=== PATIENT | female | born 2000 | race Caucasian/White ===

== ENCOUNTER 2021-03-22 16:52 | Inpatient (IN) | payer MEDICAID ==
[~2021-03-22 16:52] MED LIST: Carboprost Tromethamine 250 MCG/1 ML Amp IM PRN; Lidocaine 1% 50 ML MDV INJECT PRN; Methylergonovine 0.2 MG/1 ML Amp IM PRN; Misoprostol 200 MCG Tab PO PRN; Ondansetron 4 MG/2 ML SDV IVPUSH PRN; Sodium Chloride 0.9% 10 ML SDV IV PRN; Sodium Chloride 0.9% 10 ML Syringe FLUSH PRN; Sodium Chloride 0.9% 2.5 ML Syringe FLUSH PRN; Terbutaline 1 MG/ML SDV SUBCUT PRN; Tranexamic Acid 1,000 MG in Sodium Chloride 0.9% 100 ML IV PRN; Water For Irrigation,Sterile 1,000 ML Container IRR PRN
[2021-03-22] MEDS ORDERED: Oxytocin/0.9 % Sodium Chloride 30 UNIT/500 ML BAG IV SCH ×2 (17:00)
[2021-03-22] MEDS: Lactated Ringers 1,000 ML IV SCH (17:41)
[2021-03-22] MEDS ORDERED: Ampicillin 2 GM in Sodium Chloride 0.9% 100 ML IV ONE (18:00)
[2021-03-22] MEDS ORDERED: Misoprostol 25 MCG (1/4 of 100 MCG) Tab VAG PRN ×2 (18:00→22:00)
[2021-03-22] MEDS ORDERED: Sodium Chloride 0.9% 50 ML ONE (23:41)
[2021-03-22] MEDS ORDERED: Ampicillin 1 GM Vial ONE (23:41)
[2021-03-23] MEDS: Butorphanol 1 MG/ML SDV IVPUSH PRN ×3 (03:11→06:38)
[2021-03-23] MEDS ORDERED: Ampicillin 1 GM Vial ONE (04:12)
[2021-03-23] MEDS ORDERED: Sodium Chloride 0.9% 50 ML ONE (04:13)
--- NOTE | 2021-03-23 05:59 | PCM.PREANE ---
Preanesthetic Assessment - Procedure Proposed Procedure: Continuous labor epidural - Anesthesia/Transfusion/Family Hx Anesthesia History: Prior Anesthesia Without Reaction Other Type of Anesthesia Reaction Comment: reports previous epidural did not work Transfusion History: No Prior Transfusion(s) - Review of Systems General: No Symptoms Pulmonary: No Symptoms Cardiovascular: No Symptoms Gastrointestinal: No Symptoms Neurological: No Symptoms Other: Reports: None - Physical Assessment Height: 5 ft 3 in Weight: 113.398 kg ASA Class: 3 Mental Status: Alert & Oriented x3 Airway Class: Mallampati = 2 Dentition: Reports: Normal Dentition ROM/Head Extension: Full Lungs: Clear to Auscultation, Normal Respiratory Effort Cardiovascular: Regular Rate, Regular Rhythm - Lab Values: Laboratory Last Values WBC 12.18 K/uL (4.0-11.0) H 03/22/21 17: RBC 3.93 M/uL (4.30-5.90) L 03/22/21 17: Hgb 11.2 g/dL (12.0-16.0) L 03/22/21 17: Hct 35.2 % (36.0-46.0) L 03/22/21 17:29 MCV 89.6 fL (80.0-98.0) 03/22/21 17: MCH 28.5 pg (27.0-32.0) 03/22/21 17: MCHC 31.8 g/dL (31.0-37.0) 03/22/21 17:29 RDW Std Deviation 43.6 fl (28.0-62.0) 03/22/21 17:29 RDW Coeff of [place]ita 13 % (11.0-15.0) 03/22/21 17:29 Plt Count 267 K/uL (150-400) 03/22/21 17:29 MPV 12.30 fL (7.40-12.00) H 03/22/21 17:29 Nucleated RBC % 0.0 /100WBC 03/22/21 17:29 Nucleated RBCs # 0 K/uL 03/22/21 17:29 SARS-CoV-2 RNA (REAL) NEGATIVE (NEGATIVE) 03/22/21 17:39 Blood Type A POSITIVE 03/22/21 17:29 Antibody Screen NEGATIVE 03/22/21 17:29 - Allergies Allergies/Adverse Reactions: Allergies Allergy/AdvReac Type Severity Reaction Status Date / Time pineapple Allergy Hives Verified 03/22/21 16:49 - Acknowledgements Anesthesia Type Planned: Epidural Pt an Appropriate Candidate for the Planned Anesthesia: Yes Alternatives and Risks of Anesthesia Discussed w Pt/Guardian: Yes Pt/Guardian Understands and Agrees with Anesthesia Plan: Yes PreAnesthesia Questionnaire Cardiovascular History: Reports: Other (See Below) Other Cardiovascular History: history of gest HTN during first only Respiratory History: Reports: None Gastrointestinal History: Reports: GERD 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: : 2 Para: 1 Other OB/BYN History: one living son Musculoskeletal History: Reports: None Psychiatric History: Reports: Depression Other Psychiatric History: pt states she was taking wellbutrin for depression in beginning of but stopped - Past Surgical History HEENT Surgical History: Reports: None Cardiovascular Surgical History: Reports: None Neurological Surgical History: Reports: None - SUBSTANCE USE Tobacco Use Status *Q: Former Tobacco User - HOME MEDS Home Medications: Home Meds Albuterol [Proventil HFA] PRN 03/22/21 [History] Aspirin PO DAILY 03/22/21 [History] oxyCODONE PO DAILY 03/22/21 [History] - CURRENT (IN HOUSE) MEDS Current Meds: Current Medications Butorphanol Tartrate (Butorphanol 1 Mg/Ml Sdv) 1 mg IVPUSH Q1H PRN PRN Reason: Pain Last Admin: 03/23/21 04:11 Dose: 1 mg Documented by: Carboprost Tromethamine (Carboprost Tromethamine 250 Mcg/1 Ml Amp) 250 mcg IM ASDIRECTED PRN PRN Reason: Post Hemorrhage Oxytocin/Sodium Chloride (Oxytocin 30 Unit/500 Ml-Ns) 30 unit in 500 mls @ 500 mls/hr IV TITRATE PAUL Tranexamic Acid 1,000 mg/ (Sodium Chloride) 110 mls @ 660 mls/hr IV ONETIME PRN PRN Reason: Bleeding Oxytocin/Sodium Chloride (Oxytocin 30 Unit/500 Ml-Ns) 30 unit in 500 mls @ 2 mls/hr IV TITRATE PAUL; Protocol Lactated Ringer's (Ringers, Lactated) 1,000 mls @ 150 mls/hr IV ASDIRECTED PAUL Last Admin: 03/22/21 17:41 Dose: 150 mls/hr Documented by: Lidocaine HCl (Lidocaine 1% 50 Ml Mdv) 50 ml INJECT ONETIME PRN PRN Reason: Laceration repair Methylergonovine Maleate (Methylergonovine 0.2 Mg/1 Ml Amp) 0.2 mg IM ASDIRECTED PRN PRN Reason: Post Hemorrhage Misoprostol (Misoprostol 200 Mcg Tab) 200 mcg PO ONETIME PRN PRN Reason: Post Hemorrhage Misoprostol (Misoprostol 25 Mcg (1/4 Of 100 Mcg) Tab) 25 mcg VAG ONETIME PRN PRN Reason: Cervical Ripening Last Admin: 03/22/21 19:04 Dose: 25 mcg Documented by: Misoprostol (Misoprostol 25 Mcg (1/4 Of 100 Mcg) Tab) 25 mcg VAG Q4H PRN PRN Reason: Cervical Ripening Last Admin: 03/22/21 23:53 Dose: 25 mcg Documented by: Ondansetron HCl (Ondansetron 4 Mg/2 Ml Sdv) 4 mg IVPUSH Q6H PRN PRN Reason: Nausea/Vomiting Sodium Chloride (Sodium Chloride 0.9% 10 Ml Syringe) 10 ml FLUSH ASDIRECTED PRN PRN Reason: Keep Vein Open Sodium Chloride (Sodium Chloride 0.9% 2.5 Ml Syringe) 2.5 ml FLUSH ASDIRECTED PRN PRN Reason: Keep Vein Open Sodium Chloride (Sodium Chloride 0.9% 10 Ml Sdv) 10 ml IV ASDIRECTED PRN PRN Reason: IV Use Sterile Water (Water For Irrigation,Sterile 1,000 Ml Container) 1,000 ml IRR ASDIRECTED PRN PRN Reason: delivery Terbutaline Sulfate (Terbutaline 1 Mg/Ml Sdv) 0.25 mg SUBCUT ASDIRECTED PRN PRN Reason: Tacysystole Discontinued Medications Ampicillin Sodium (Ampicillin 1 Gm Vial) Confirm Administered Dose 1 gm .ROUTE .STK-MED ONE Stop: 03/22/21 23:42 Last Admin: 03/22/21 23:48 Dose: 1 gm Documented by: Ampicillin Sodium (Ampicillin 1 Gm Vial) Confirm Administered Dose 1 gm .ROUTE .STK-MED ONE Stop: 03/23/21 04:13 Ephedrine Sulfate (Ephedrine Sulfate 50 Mg/10 Ml Vial) Confirm Administered Dose 50 mg .ROUTE .STK-MED ONE Stop: 03/23/21 05:27 Ampicillin Sodium 2 gm/ Sodium (Chloride) 100 mls @ 200 mls/hr IV ONETIME ONE Stop: 03/22/21 18:29 Last Admin: 03/22/21 19:01 Dose: 200 mls/hr Documented by: Sodium Chloride (Normal Saline) Confirm Administered Dose 50 mls @ as directed .ROUTE .STK-MED ONE Stop: 03/22/21 23:42 Sodium Chloride (Normal Saline) Confirm Administered Dose 50 mls @ as directed .ROUTE .STK-MED ONE Stop: 03/23/21 04:14
--- NOTE | 2021-03-23 06:00 | PCM.POSTAN ---
POST ANESTHESIA ASSESSMENT - MENTAL STATUS Mental Status: Alert, Oriented - RESPIRATORY Respiratory Status: Respiratory Rate WNL, Airway Patent, O2 Saturation Stable - CARDIOVASCULAR CV Status: Pulse Rate WNL, Blood Pressure Stable - GASTROINTESTINAL GI Status: No Symptoms - POST OP HYDRATION Hydration Status: Adequate & Stable - OBSERVATIONS Free Text/Narrative:: epidural removed per patient request
[2021-03-23] MEDS: Lactated Ringers 1,000 ML IV SCH (06:40)
--- NOTE | 2021-03-23 07:41 | PCM.OPNOTE ---
- General Post-Op/Procedure Note Date of Surgery/Procedure: 03/23/21 Operative Procedure(s): cytotec induction TSVD repair of right labial laceration Findings: Liveborn male 8/9 weight is pending, right labia laceration repaired Pre Op Diagnosis: 39 weeks, lives remote from the hospital, GBS positive. Post-Op Diagnosis: Same Anesthesia Technique: Other (see below) (attempted epidural, did not work, removed) Primary Surgeon: Cheryl Randhawa Anesthesia Provider: Kirit Lara Pathology: none EBL in mLs: 300 Complications: None Known Condition: Good
[2021-03-23] MEDS ORDERED: Bisacodyl 10 MG Supp RECTAL PRN (07:43)
[2021-03-23] MEDS ORDERED: Lanolin 100% Cream 7 GM Tube TOP PRN (07:43)
[2021-03-23] MEDS ORDERED: Witch Hazel Medicated Pads 40/Jar TOP PRN (07:43)
[2021-03-23] MEDS ORDERED: Benzocaine/Menthol 20%-0.5% Spray 78 GM Cannister TOP PRN (07:43)
[2021-03-23] MEDS ORDERED: Ibuprofen 400 MG Tab PO PRN (07:43)
--- NOTE | 2021-03-23 09:24 | OR ---
SURGEON: Cheryl Randhawa M.D. DATE OF PROCEDURE: 03/23/2021 PREOOPERATIVE DIAGNOSES: 39-week intrauterine , was remote from the hospital, group B Streptococcus positive. POSTOPERATIVE DIAGNOSES: 39-week intrauterine , was remote from the hospital, group B Streptococcus positive. PROCEDURES: Group B Streptococcus prophylaxis, Cytotec induction of labor, term spontaneous vaginal delivery, repair of right labial laceration. PRIMARY SURGEON: Cheryl Randhawa M.D. ANESTHESIA: Epidural attempted, but failed and removed. FINDINGS: Live born male. scores 8 and 9. Weight is pending. Placenta spontaneous, Schultze intact, with 3 vessels. Large right labial laceration repaired for hemostasis. COMPLICATIONS: None known. DISPOSITION: Mother and baby in LDR in good condition. BRIEF HISTORY: This is a 20-year-old female. She is G2, P1-0-0-1. She presents at 39 weeks' gestation for induction of labor. She lives remote from the hospital. She is group B strep positive. She received group B strep prophylaxis. She received 2 doses of Cytotec. When she was 4 to 5 cm dilated, she had spontaneous rupture of membranes. She received an epidural for pain control, which did not work. Noted that during her previous delivery, she received 2 epidurals, both of which did not work. Therefore, the epidural was removed, and she received Stadol for pain control, and she progressed to complete. I did offer her a pudendal block. However, when she was complete, she continued to push. DESCRIPTION OF PROCEDURE: The patient pushed in the dorsal lithotomy position over 2 contractions to a 5+ station. Therefore, did not receive the pudendal block, and the head was delivered spontaneously and atraumatically over the perineum with support with subsequent delivery of the infant's shoulders and body without any difficulty. The was bulb suctioned by nose and mouth, and after 1-1/2 minutes, the cord was doubly clamped and cut. The infant was handed to the mother in the presence of the nurse attending delivery. The is a live born male. scores 8 and 9. Weight is pending at the time of dictation. Cord blood was collected for cord ABGs as well as routine cord blood sampling. Pitocin was initiated after delivery of the to assist with delivery of the placenta which was delivered spontaneously. Schultze intact with 3 vessels. Upon inspection of pelvis and perineum, there were no periurethral, vaginal sidewall, cervical, rectal, or perineal lacerations. There was a right labial laceration that extended from the 6 o'clock position all the way up the labia. A total of 20 mL of 1% lidocaine was injected. A running lock suture was used to reapproximate the labial skin and 2 deep [id number] sutures were placed at the lower aspect for hemostasis. Final sponge, needle, and instrument counts were correct. There were no known complications. Mother and baby remained in LDR in good condition. NATALY / TANA /[id number]
[2021-03-23] MEDS: Ibuprofen 800 MG Tab PO PRN ×2 (10:29→20:18)
[2021-03-23] MEDS: Acetaminophen 500 MG Tab PO PRN ×2 (10:29→23:38)
[2021-03-23] MEDS ORDERED: Ketorolac 30 MG/ML SDV IVPUSH ONE (11:13)
[2021-03-23] MEDS: oxyCODONE 5 MG Tab PO PRN ×3 (12:30→23:39)
[2021-03-23] MEDS ORDERED: Ketorolac 30 MG/ML SDV ONE (16:11)
[2021-03-23] MEDS: Docusate Sodium 100 MG Cap PO PRN (20:16)
[2021-03-24] MEDS: Acetaminophen 500 MG Tab PO PRN ×2 (04:29→13:23)
[2021-03-24] MEDS: oxyCODONE 5 MG Tab PO PRN ×3 (04:30→22:06)
[2021-03-24] MEDS: Ibuprofen 800 MG Tab PO PRN (07:24)
--- NOTE | 2021-03-24 07:56 | PCM.PNPP ---
- General Info Date of Service: 03/24/21 Subjective Update: Resting in bed with ice to neck/base of head due to spinal headache. Has talked with anesthesia who plans to proceed with a blood patch today to attempt to improve her symptoms. Otherwise, denies abdominal or lower extremity pain. Has ambulated and voided with nursing staff. Lochia decreasing. Tolerating regular diet. Denies lightheadedness or dizziness. Breast and bottlefeeding due to borderline blood glucose for . - General Info Date of Service: 03/24/21 - Patient Data Vital Signs - Most Recent: Last Vital Signs Temp 96.9 F 03/24/21 04:30 Pulse 80 03/24/21 04:30 Resp 17 03/24/21 04:30 BP 111/58 L 03/24/21 04:30 Pulse Ox 100 03/24/21 04:30 Weight - Most Recent: 250 lb Lab Results - Last 24 Hours: Laboratory Results - last 24 hr 03/23/21 03/24/21 Range/Units 07:09 06:47 Hgb 8.9 L (12.0-16.0) g/dL Hct 28.0 L (36.0-46.0) % Cord ABG pH 7.235 (7.18-7.38) Cord ABG Base Excess -5 (-10--2) Cord VBG pH 7.415 (7.25-7.45) Cord VBG Base Excess -3 (-10--2) Med Orders - Current: Current Medications Acetaminophen (Acetaminophen 500 Mg Tab) 500 mg PO Q4H PRN PRN Reason: Pain Last Admin: 03/24/21 04:29 Dose: 500 mg Documented by: Acetaminophen (Acetaminophen 500 Mg Tab) 1,000 mg PO Q4H PRN PRN Reason: Pain Last Admin: 03/23/21 10:29 Dose: 1,000 mg Documented by: Benzocaine/Menthol (Benzocaine/Menthol 20%-0.5% [place] 78 Gm Cannister) 78 gm TOP ASDIRECTED PRN PRN Reason: Perineal Comfort Measure Last Admin: 03/23/21 20:17 Dose: 1 spray Documented by: Bisacodyl (Bisacodyl 10 Mg Supp) 10 mg RECTAL ONETIME PRN PRN Reason: Constipation Docusate Sodium (Docusate Sodium 100 Mg Cap) 100 mg PO BID PRN PRN Reason: Constipation Last Admin: 03/23/21 20:16 Dose: 100 mg Documented by: Emollient Ointment (Lanolin 100% Cream 7 Gm Tube) 0 gm TOP ASDIRECTED PRN PRN Reason: Sore Nipples Ibuprofen (Ibuprofen 400 Mg Tab) 400 mg PO Q4H PRN PRN Reason: Pain Ibuprofen (Ibuprofen 800 Mg Tab) 800 mg PO Q6H PRN PRN Reason: Pain Last Admin: 03/24/21 07:24 Dose: 800 mg Documented by: Oxycodone HCl (Oxycodone 5 Mg Tab) 0 mg PO Q4H PRN PRN Reason: Pain (severe 7-10) Last Admin: 03/24/21 04:30 Dose: 10 mg Documented by: Juanis Tate (Juanis Tate Medicated Pads 40/Jar) 1 pad TOP ASDIRECTED PRN PRN Reason: comfort care Last Admin: 03/23/21 20:16 Dose: 1 pad Documented by: Discontinued Medications Ampicillin Sodium (Ampicillin 1 Gm Vial) Confirm Administered Dose 1 gm .ROUTE . STK-MED ONE Stop: 03/22/21 23:42 Last Admin: 03/22/21 23:48 Dose: 1 gm Documented by: Ampicillin Sodium (Ampicillin 1 Gm Vial) Confirm Administered Dose 1 gm .ROUTE .STK-MED ONE Stop: 03/23/21 04:13 Butorphanol Tartrate (Butorphanol 1 Mg/Ml Sdv) 1 mg IVPUSH Q1H PRN PRN Reason: Pain Last Admin: 03/23/21 06:38 Dose: 1 mg Documented by: Carboprost Tromethamine (Carboprost Tromethamine 250 Mcg/1 Ml Amp) 250 mcg IM ASDIRECTED PRN PRN Reason: Post Hemorrhage Ephedrine Sulfate (Ephedrine Sulfate 50 Mg/10 Ml Vial) Confirm Administered Dose 50 mg .ROUTE .STK-MED ONE Stop: 03/23/21 05:27 Last Admin: 03/23/21 10:13 Dose: Not Given Documented by: Oxytocin/Sodium Chloride (Oxytocin 30 Unit/500 Ml-Ns) 30 unit in 500 mls @ 500 mls/hr IV TITRATE PAUL Last Admin: 03/23/21 07:10 Dose: 999 mls/hr Documented by: Tranexamic Acid 1,000 mg/ (Sodium Chloride) 110 mls @ 660 mls/hr IV ONETIME PRN PRN Reason: Bleeding Oxytocin/Sodium Chloride (Oxytocin 30 Unit/500 Ml-Ns) 30 unit in 500 mls @ 2 mls/hr IV TITRATE PAUL; Protocol Ampicillin Sodium 2 gm/ Sodium (Chloride) 100 mls @ 200 mls/hr IV ONETIME ONE Stop: 03/22/21 18:29 Last Admin: 03/22/21 19:01 Dose: 200 mls/hr Documented by: Lactated Ringer's (Ringers, Lactated) 1,000 mls @ 150 mls/hr IV ASDIRECTED PAUL Last Admin: 03/23/21 06:40 Dose: 150 mls/hr Documented by: Sodium Chloride (Normal Saline) Confirm Administered Dose 50 mls @ as directed .ROUTE .STK-MED ONE Stop: 03/22/21 23:42 Sodium Chloride (Normal Saline) Confirm Administered Dose 50 mls @ as directed .ROUTE .STK-MED ONE Stop: 03/23/21 04:14 Ketorolac Tromethamine (Ketorolac 30 Mg/Ml Sdv) 30 mg IVPUSH ONETIME ONE Stop: 03/23/21 11:14 Last Admin: 03/23/21 16:32 Dose: 30 mg Documented by: Ketorolac Tromethamine (Ketorolac 30 Mg/Ml Sdv) Confirm Administered Dose 30 mg .ROUTE .STK-MED ONE Stop: 03/23/21 16:12 Lidocaine HCl (Lidocaine 1% 50 Ml Mdv) 50 ml INJECT ONETIME PRN PRN Reason: Laceration repair Last Admin: 03/23/21 07:54 Dose: 50 ml Documented by: Methylergonovine Maleate (Methylergonovine 0.2 Mg/1 Ml Amp) 0.2 mg IM ASDIRECTED PRN PRN Reason: Post Hemorrhage Misoprostol (Misoprostol 200 Mcg Tab) 200 mcg PO ONETIME PRN PRN Reason: Post Hemorrhage Misoprostol (Misoprostol 25 Mcg (1/4 Of 100 Mcg) Tab) 25 mcg VAG ONETIME PRN PRN Reason: Cervical Ripening Last Admin: 03/22/21 19:04 Dose: 25 mcg Documented by: Misoprostol (Misoprostol 25 Mcg (1/4 Of 100 Mcg) Tab) 25 mcg VAG Q4H PRN PRN Reason: Cervical Ripening Last Admin: 03/22/21 23:53 Dose: 25 mcg Documented by: Ondansetron HCl (Ondansetron 4 Mg/2 Ml Sdv) 4 mg IVPUSH Q6H PRN PRN Reason: Nausea/Vomiting Sodium Chloride (Sodium Chloride 0.9% 10 Ml Syringe) 10 ml FLUSH ASDIRECTED PRN PRN Reason: Keep Vein Open Sodium Chloride (Sodium Chloride 0.9% 2.5 Ml Syringe) 2.5 ml FLUSH ASDIRECTED PRN PRN Reason: Keep Vein Open Sodium Chloride (Sodium Chloride 0.9% 10 Ml Sdv) 10 ml IV ASDIRECTED PRN PRN Reason: IV Use Sterile Water (Water For Irrigation,Sterile 1,000 Ml Container) 1,000 ml IRR ASDIRECTED PRN PRN Reason: delivery Terbutaline Sulfate (Terbutaline 1 Mg/Ml Sdv) 0.25 mg SUBCUT ASDIRECTED PRN PRN Reason: Tacysystole - Infant Interaction Disposition, : [place] to Nursery Feeding: Bottle Fed Infant, Breastfed ; Nursed Well Support Person: Significant Other - Recovery Exam Fundal Tone: Firm Fundal Level: 1 Fingerbreadths Below Umbilicus Fundal Placement: Midline Lochia Amount: Scant Lochia Color: Rubra/Red Perineum Description: Intact, Minimal Bruising/Swelling Episiotomy/Laceration: Approximated Bladder Status: Voiding Urinary Elimination: Voided - Exam General: Alert Lungs: Normal Respiratory Effort Cardiovascular: Regular Rate GI/Abdominal Exam: Soft, Non-Tender Extremities: Normal Range of Motion, Non-Tender, Pedal Edema (trace) Skin: Warm, Dry, Intact Neurological: No New Focal Deficit Psy/Mental Status: Normal Mood - Problem List Review Problem List Initiated/Reviewed/Updated: Yes - Assessment Assessment:: 20 year old PPD #1 s/p - Plan Plan:: Routine cares * Rh positive, rubella immune * GBS positive, s/p IV Ampicillin during labor * Encourage ambulation and fluid intake * Regular diet as tolerated * History of hemorrhoids- Tucks pads and topical cream ordered * Breast and bottle feeding Anemia * Hgb 11.2 > 8.9 * Asymptomatic * PO Ferrous sulfate ordered BID with meals Spinal headache * Secondary to failed epidural attempt * Per anesthesia, will attempt blood patch today for symptom relief. Dispo: stable. Anticipate discharge tomorrow pending relief of spinal headache. Continue cares today.
[2021-03-24] MEDS ORDERED: Hydrocortisone 2.5% Crm 30 GM Tube TOP PRN (08:11)
[2021-03-24] MEDS: Docusate Sodium 100 MG Cap PO PRN (08:36)
--- NOTE | 2021-03-24 11:11 | PCM.SN.2 ---
- Free Text/Narrative Note: 20 female with wet tap yesterday during labor epidural placement symptoms classic of spinal SWANSON and unchanged with bedrest, fluids, and caffeine PAR consent obtained for blood patch LLD sterile prep with chlorhexadine, drapped local injected L3-4 18g [place] Pos NEVIL[place] no csf, blood, or parethesia's 20cc sterilly obtained blood injected without complication followup prn
[2021-03-24] MEDS: Ketorolac 30 MG/ML SDV IVPUSH PRN ×2 (13:49→20:03)
[2021-03-24] MEDS: Ferrous Sulfate 325 MG Tab PO SCH (17:59)
[2021-03-25] MEDS: Ibuprofen 800 MG Tab PO PRN ×2 (02:11→09:52)
[2021-03-25] MEDS: oxyCODONE 5 MG Tab PO PRN (04:21)
[2021-03-25] MEDS: Acetaminophen 500 MG Tab PO PRN ×2 (07:02→14:54)
--- NOTE | 2021-03-25 07:06 | PCM48HPAN ---
Post Anesthesia Note - EVALUATION WITHIN 48HRS OF ANESTHETIC Vital Signs in Normal Range: Yes Patient Participated in Evaluation: Yes Respiratory Function Stable: Yes Airway Patent: Yes Cardiovascular Function Stable: Yes Hydration Status Stable: Yes Pain Control Satisfactory: Yes Nausea and Vomiting Control Satisfactory: Yes Mental Status Recovered: Yes Vital Signs: Last Vital Signs Temp 97.2 F 03/25/21 04:15 Pulse 83 03/25/21 04:15 Resp 14 03/25/21 04:15 BP 113/65 03/25/21 04:15 Pulse Ox 95 03/24/21 20:15 - COMMENTS/OBSERVATIONS Free Text/Narrative:: Pt. reporting the post dural puncture headache had significantly improved after the blood patch. Pt. able to tolerate light and sitting up and standing without a significant headache. Pt. reporting some pressure in her lower back and a slight headache. Pt. encouraged to drink fluids and caffeine. Take her pain meds as ordered. Pt. encouraged to come back to the hospital if there is any significant changes with the headache and the lower back pressure.
--- NOTE | 2021-03-25 08:13 | PCM.PNPP ---
- General Info Date of Service: 03/25/21 Subjective Update: Patient sitting upright in bed during rounds. Had blood patch administered yesterday and her headache has significantly improved. Has concerns regarding her right labial laceration and if it the sutures have come out. Has ambulated and voided with nursing staff. Lochia decreasing. Tolerating regular diet. Denies lightheadedness or dizziness. Breast and bottlefeeding. - General Info Date of Service: 03/25/21 - Patient Data Vital Signs - Most Recent: Last Vital Signs Temp 97.2 F 03/25/21 04:15 Pulse 83 03/25/21 04:15 Resp 14 03/25/21 04:15 BP 113/65 03/25/21 04:15 Pulse Ox 95 03/24/21 20:15 Weight - Most Recent: 250 lb Med Orders - Current: Current Medications Acetaminophen (Acetaminophen 500 Mg Tab) 500 mg PO Q4H PRN PRN Reason: Pain Last Admin: 03/24/21 04:29 Dose: 500 mg Documented by: Acetaminophen (Acetaminophen 500 Mg Tab) 1,000 mg PO Q4H PRN PRN Reason: Pain Last Admin: 03/25/21 07:02 Dose: 1,000 mg Documented by: Benzocaine/Menthol (Benzocaine/Menthol 20%-0.5% [place] 78 Gm Cannister) 78 gm TOP ASDIRECTED PRN PRN Reason: Perineal Comfort Measure Last Admin: 03/23/21 20:17 Dose: 1 spray Documented by: Bisacodyl (Bisacodyl 10 Mg Supp) 10 mg RECTAL ONETIME PRN PRN Reason: Constipation Docusate Sodium (Docusate Sodium 100 Mg Cap) 100 mg PO BID PRN PRN Reason: Constipation Last Admin: 03/24/21 08:36 Dose: 100 mg Documented by: Emollient Ointment (Lanolin 100% Cream 7 Gm Tube) 0 gm TOP ASDIRECTED PRN PRN Reason: Sore Nipples Ferrous Sulfate (Ferrous Sulfate 325 Mg Tab) 325 mg PO BIDMEALS [facility] Last Admin: 03/24/21 17:59 Dose: 325 mg Documented by: Hydrocortisone (Hydrocortisone 2.5% Crm 30 Gm Tube) 1 gm TOP Q8HR PRN PRN Reason: Hemorrhoids Last Admin: 03/24/21 13:19 Dose: 30 tube Documented by: Ibuprofen (Ibuprofen 400 Mg Tab) 400 mg PO Q4H PRN PRN Reason: Pain Ibuprofen (Ibuprofen 800 Mg Tab) 800 mg PO Q6H PRN PRN Reason: Pain Last Admin: 03/25/21 02:11 Dose: 800 mg Documented by: Oxycodone HCl (Oxycodone 5 Mg Tab) 0 mg PO Q4H PRN PRN Reason: Pain (severe 7-10) Last Admin: 03/25/21 04:21 Dose: 10 mg Documented by: Juanis Tate (Juanis Tate Medicated Pads 40/Jar) 1 pad TOP ASDIRECTED PRN PRN Reason: comfort care Last Admin: 03/23/21 20:16 Dose: 1 pad Documented by: Discontinued Medications Ampicillin Sodium (Ampicillin 1 Gm Vial) Confirm Administered Dose 1 gm .ROUTE .STK-MED ONE Stop: 03/22/21 23:42 Last Admin: 03/22/21 23:48 Dose: 1 gm Documented by: Ampicillin Sodium (Ampicillin 1 Gm Vial) Confirm Administered Dose 1 gm .ROUTE .STK-MED ONE Stop: 03/23/21 04:13 Butorphanol Tartrate (Butorphanol 1 Mg/Ml Sdv) 1 mg IVPUSH Q1H PRN PRN Reason: Pain Last Admin: 03/23/21 06:38 Dose: 1 mg Documented by: Carboprost Tromethamine (Carboprost Tromethamine 250 Mcg/1 Ml Amp) 250 mcg IM ASDIRECTED PRN PRN Reason: Post Hemorrhage Ephedrine Sulfate (Ephedrine Sulfate 50 Mg/10 Ml Vial) Confirm Administered Dose 50 mg .ROUTE .STK-MED ONE Stop: 03/23/21 05:27 Last Admin: 03/23/21 10:13 Dose: Not Given Documented by: Oxytocin/Sodium Chloride (Oxytocin 30 Unit/500 Ml-Ns) 30 unit in 500 mls @ 500 mls/hr IV TITRATE PAUL Last Admin: 03/23/21 07:10 Dose: 999 mls/hr Documented by: Tranexamic Acid 1,000 mg/ (Sodium Chloride) 110 mls @ 660 mls/hr IV ONETIME PRN PRN Reason: Bleeding Oxytocin/Sodium Chloride (Oxytocin 30 Unit/500 Ml-Ns) 30 unit in 500 mls @ 2 mls/hr IV TITRATE PAUL; Protocol Ampicillin Sodium 2 gm/ Sodium (Chloride) 100 mls @ 200 mls/hr IV ONETIME ONE Stop: 03/22/21 18:29 Last Admin: 03/22/21 19:01 Dose: 200 mls/hr Documented by: Lactated Ringer's (Ringers, Lactated) 1,000 mls @ 150 mls/hr IV ASDIRECTED PAUL Last Admin: 03/23/21 06:40 Dose: 150 mls/hr Documented by: Sodium Chloride (Normal Saline) Confirm Administered Dose 50 mls @ as directed .ROUTE .STK-MED ONE Stop: 03/22/21 23:42 Sodium Chloride (Normal Saline) Confirm Administered Dose 50 mls @ as directed .ROUTE .STK-MED ONE Stop: 03/23/21 04:14 Ketorolac Tromethamine (Ketorolac 30 Mg/Ml Sdv) 30 mg IVPUSH ONETIME ONE Stop: 03/23/21 11:14 Last Admin: 03/23/21 16:32 Dose: 30 mg Documented by: Ketorolac Tromethamine (Ketorolac 30 Mg/Ml Sdv) Confirm Administered Dose 30 mg .ROUTE .STK-MED ONE Stop: 03/23/21 16:12 Last Admin: 03/24/21 14:16 Dose: Not Given Documented by: Ketorolac Tromethamine (Ketorolac 30 Mg/Ml Sdv) 30 mg IVPUSH Q6H PRN PRN Reason: Pain Stop: 03/29/21 13:32 Last Admin: 03/24/21 20:03 Dose: 30 mg Documented by: Lidocaine HCl (Lidocaine 1% 50 Ml Mdv) 50 ml INJECT ONETIME PRN PRN Reason: Laceration repair Last Admin: 03/23/21 07:54 Dose: 50 ml Documented by: Methylergonovine Maleate (Methylergonovine 0.2 Mg/1 Ml Amp) 0.2 mg IM ASDIREC ARLET PRN PRN Reason: Post Hemorrhage Misoprostol (Misoprostol 200 Mcg Tab) 200 mcg PO ONETIME PRN PRN Reason: Post Hemorrhage Misoprostol (Misoprostol 25 Mcg (1/4 Of 100 Mcg) Tab) 25 mcg VAG ONETIME PRN PRN Reason: Cervical Ripening Last Admin: 03/22/21 19:04 Dose: 25 mcg Documented by: Misoprostol (Misoprostol 25 Mcg (1/4 Of 100 Mcg) Tab) 25 mcg VAG Q4H PRN PRN Reason: Cervical Ripening Last Admin: 03/22/21 23:53 Dose: 25 mcg Documented by: Ondansetron HCl (Ondansetron 4 Mg/2 Ml Sdv) 4 mg IVPUSH Q6H PRN PRN Reason: Nausea/Vomiting Sodium Chloride (Sodium Chloride 0.9% 10 Ml Syringe) 10 ml FLUSH ASDIRECTED PRN PRN Reason: Keep Vein Open Sodium Chloride (Sodium Chloride 0.9% 2.5 Ml Syringe) 2.5 ml FLUSH ASDIRECTED PRN PRN Reason: Keep Vein Open Sodium Chloride (Sodium Chloride 0.9% 10 Ml Sdv) 10 ml IV ASDIRECTED PRN PRN Reason: IV Use Sterile Water (Water For Irrigation,Sterile 1,000 Ml Container) 1,000 ml IRR ASDIRECTED PRN PRN Reason: delivery Terbutaline Sulfate (Terbutaline 1 Mg/Ml Sdv) 0.25 mg SUBCUT ASDIRECTED PRN PRN Reason: Tacysystole - Interaction Disposition, : at Bedside Feeding: Bottle Fed Infant, Breastfed ; Nursed Well Support Person: Significant Other - Recovery Exam Fundal Tone: Firm Fundal Level: At Umbilicus Fundal Placement: Midline Lochia Amount: Scant Lochia Color: Rubra/Red Perineum Description: Other (see below) (Right labial laceration is gaping, appears sutures have come loose) Other Perinuem Description: Right vaginal wall laceration repaired. Bladder Status: Voiding Urinary Elimination: Voided - Exam General: Alert Lungs: Normal Respiratory Effort Cardiovascular: Regular Rate GI/Abdominal Exam: Soft, Non-Tender Extremities: Normal Range of Motion, Non-Tender, Pedal Edema (Trace) Skin: Warm, Dry, Intact Wound/Incisions: No Drainage Neurological: No New Focal Deficit Psy/Mental Status: Normal Mood - Problem List Review Problem List Initiated/Reviewed/Updated: Yes - My Orders Last 24 Hours: My Active Orders 03/24/21 08:11 Hydrocortisone [Proctozone-HC 2.5% Crm] 1 gm TOP Q8HR PRN 03/24/21 17:00 Ferrous Sulfate 325 mg PO BIDMEALS - Assessment Assessment:: 20 year old PPD #2 s/p - Plan Plan:: Routine cares * Rh positive, rubella immune * GBS positive, s/p IV Ampicillin during labor * Encourage ambulation and fluid intake * Regular diet as tolerated * History of hemorrhoids- Tucks pads and topical cream ordered * Breast and bottle feeding. Rx for breastpump provided today. * Declines hormonal contraception at this time. Anemia * Hgb 11.2 > 8.9 * Asymptomatic * PO Ferrous sulfate ordered BID with meals Spinal headache * Secondary to failed epidural attempt * Has received much relief s/p blood patch application yesterday. Right labial laceration * Upon examination this morning, superficial portion of right labial laceration is noted to be gaping and sutures are loose. Reviewed options for management with patient including expectant management vs. re-approximation. Patient desires to proceed with re-approximation at this time. Risks of the procedure were discussed, informed consent obtained. Timeout was performed. The right labia was prepped with betadine. 8cc of 1% lidocaine was injected along the edges of the laceration. The laceration was then repaired in a running fashion with 3-0 Vicryl. Patient tolerated procedure well. Dispo: stable. Anticipate discharge today pending maternal/infant status. Reviewed discharge precautions including fever/chills, intractable nausea/vomiting, severe pain not controlled by PO medication or heavy vaginal bleeding. Questions elicited and answered. Patient to return to clinic in 4 weeks for appointment.
[2021-03-25] MEDS ORDERED: Lidocaine 1% 50 ML MDV ONE (08:24)
[2021-03-25] MEDS ORDERED: Lidocaine 1% 50 ML MDV INJECT PRN (09:14)
[2021-03-25] MEDS: Ferrous Sulfate 325 MG Tab PO SCH (09:52)
[2021-03-25] MEDS: Docusate Sodium 100 MG Cap PO PRN (10:30)
== END 2021-03-25 15:00 | disposition home or self-care (01) | DRG 807 ==
LOC: MW.OBCHECK 16:52 → MW.OB 16:53 → OBSVTOIN 03-23 07:09 → MW.OB 03-23 12:42
PROVIDERS: ADMIT Obstetrics & Gynecology; ATTEND Obstetrics & Gynecology
PROC: 10E0XZZ Delivery of Products of Conception, External Approach (ICD-10-PCS; principal; 2021-03-23)
PROC: 3E0P7VZ Introduction of Hormone into Female Reproductive, Via Natural or Artificial Opening (ICD-10-PCS; 2021-03-23)
PROC: 0HQ9XZZ Repair Perineum Skin, External Approach (ICD-10-PCS; 2021-03-23)
PROC: 3E0R3GC Introduction of Other Therapeutic Substance into Spinal Canal, Percutaneous Approach (ICD-10-PCS; 2021-03-24)
DX: O99.824 Streptococcus B carrier state complicating childbirth (principal); Z37.0 Single live birth; Z3A.39 39 weeks gestation of pregnancy; O70.0 First degree perineal laceration during delivery; Z20.822 Contact with and (suspected) exposure to COVID-19; T88.59XA Other complications of anesthesia, initial encounter; G44.40 Drug-induced headache, not elsewhere classified, not intractable; Y83.9 Surgical procedure, unspecified as the cause of abnormal reaction of the patient, or of later complication, without mention of misadventure at the time of the procedure; O99.02 Anemia complicating childbirth; D64.9 Anemia, unspecified
CPT/HCPCS: 36415; 59025; 59409; 82803; 85014; 85018; 85027; 86592; 86850; 86900; 86901; A9270-GY; J0290; J0595; J1885; J2001; J2590; J7120; U0002

== ENCOUNTER 2021-03-26 17:28 | Emergency (ER) | payer MEDICAID ==
[2021-03-26] MEDS ORDERED: Sodium Chloride 0.9% 1,000 ML IV ONE (17:50)
[2021-03-26] MEDS ORDERED: Ketorolac 30 MG/ML SDV IVPUSH ONE (17:50)
[2021-03-26] MEDS ORDERED: Ondansetron 4 MG/2 ML SDV IVPUSH ONE (17:50)
[2021-03-26] MEDS ORDERED: diphenhydrAMINE 50 MG/ML SDV IVPUSH ONE (17:50)
[2021-03-26] MEDS ORDERED: Metoclopramide 10 MG/2 ML SDV IV ONE (17:50)
--- NOTE | 2021-03-26 19:02 | PCM.SN.2 ---
- Free Text/Narrative Note: Pt returns to ER with a return of her positional headache after a 1.[address] sitting up Blood patch inserted last late morning with resolution of her positional SWANSON Her headache after the blood patch was 2-3/10 but was not positional in nature She awoke this morning with return of the same spinal SWANSON she had before the blood patch Her SWANSON is bilat lower neck with radiation to bifrontal areas. There is no fever, chills, nausea, emesis, visual changes, or extremety weakness PAR repeat blood patch again discussed Pt will lay supine for an hour after the blood patch then ride home laying down. At home she will rest, avoid lifting objects, and avoid sitting at 90 degrees for a week. If she has any fever, chills or anything else of concern whe will return to the ER consent signed LLD sterile prep Local injection 18 g Tuohy inserted L3-4 plus NEVILLE, no csf, blood, or paresthesia 25cc sterilly obtained blood injected without complication supine for one hour no complications
--- NOTE | 2021-03-26 19:58 | EDM.PDOC ---
ED HPI GENERAL MEDICAL PROBLEM - General Chief Complaint: Headache Stated Complaint: POSSIBLE SPINAL HEADACHE Time Seen by Provider: 03/26/21 17:29 Source of Information: Reports: Patient History Limitations: Reports: No Limitations - History of Present Illness INITIAL COMMENTS - FREE TEXT/NARRATIVE: HISTORY AND PHYSICAL: History of present illness: Patient is a 20 year old female who presents to the ED today with concern of a spinal headache following a epidural wet tap that occurred 2 days ago during labor. Patient states that she received blood patch while in the hospital by the anesthesiologist which she states almost immediately improved her headache. She says the headache is positional and worse with sitting up and better when laying flat. Patient states that when she woke up this morning, she was probably "too active" taking care of her 2 year old child and and feels like she "dislodged" the blood patch. Patient states the headache is the exact same that occurred while in labor following the wet tap and is not any different in nature and is at the base of her neck and wraps around to the top of her head. She denies any head injury or LOC. Patient states she delivered vaginally full term without any complications with a routine non complicated -denies pre- eclampsia/gestational htn/eclampsia. She states she is having vaginal bleeding but denies heavy vaginal bleeding or any other associated symptoms. Patient denies fever, chills, chest pain, shortness of breath, or cough. Denies neck stiff ness, change in vision, syncope, or near syncope. Denies nausea, vomiting, abdominal pain, diarrhea, constipation, or dysuria. Has not noted any blood in urine or stool. Patient has been eating and drinking appropriately. Review of systems: As per history of present illness and below otherwise all systems reviewed and negative. Past medical history: As per history of present illness and as reviewed below otherwise noncontributory. Surgical history: As per history of present illness and as reviewed below otherwise noncontributory. Social history: See social history for further information Family history: As per history of present illness and as reviewed below otherwise noncontributory. Physical exam: General: Patient is alert, oriented, and in no acute distress. Patient laying comfortably on exam table, she is holding her head in her hands while preferring to lay flat, vitals stable and reviewed by me. HEENT: Atraumatic, normocephalic, pupils equal and reactive bilaterally, negative for conjunctival pallor or scleral icterus, mucous membranes moist, TMs normal bilaterally, throat clear, neck supple, nontender, trachea midline. No drooling or trismus noted. No meningeal signs. No hot potato voice noted. Lungs: Clear to auscultation, breath sounds equal bilaterally, chest nontender. Heart: S1S2, regular rate and rhythm without overt murmur Abdomen: Soft, nondistended, nontender. Negative for masses or hepatosp lenomegaly. Negative for costovertebral tenderness. Pelvis: Stable nontender. Genitourinary: Deferred. Rectal: Deferred. Skin: Intact, warm, dry. No lesions or rashes noted. Extremities: Atraumatic, negative for cords or calf pain. Neurovascular unremarkable. Neuro: Awake, alert, oriented. Cranial nerves II through XII unremarkable. Cerebellum unremarkable. Motor and sensory unremarkable throughout. Exam nonfocal. Notes: Upon arrival to the ED, patient is vitally stable, and nontoxic-appearing, non focal. Blood pressure on exam 130/60 and vitally stable. She does not have a h/o gestational htn / pre-clampsia/eclampsia and blood pressure today is normal. She is lying flat on exam table does have an increased headache with sitting up as well as preferring to be laying flat and holding her head appearing uncomfortable. She describes her headache as feeling the exact same as her headache that occurred after a wet epidural tap in the hospital, which she states almost immediately improved following a blood patch in the hospital. I did call and speak to the anesthesiologist station cook, Dr. Espinoza, who performed patients initial blood patch. He does feel that a 2nd blood patch may beneficial as patient was likely too active and should have been on bedrest/laying flat and possibly dislodged the initial patch. He has come in to personally see and evaluate the patient. See his procedure note for blood patch. Upon reevaluation of patient following blood patch, she expresses near complete resolution of her headache and clinically improved. She remains vitally stable throughout stay in ED. Strict return precautions thoroughly discussed with patient and expresses understanding. Discussed the importance for follow up with PCP/womens health provider. Voices understanding and is agreeable to plan of care. Denies any further questions or concerns at this time. Diagnostics: None Therapeutics: Blood Patch (performed by Dr. Espinoza, anesthesiologist) Prescription: None Impression: Spinal headache Plan: 1. Follow-up with your primary care provider/womens health provider as discussed. Return to the ED as needed and as discussed. 2. Take precautions as discussed to you by the anesthesiologist. Definitive disposition and diagnosis as appropriate pending reevaluation and review of above. headache Pain Score (Numeric/FACES): 10 - Related Data Allergies Allergy/AdvReac Type Severity Reaction Status Date / Time pineapple Allergy Hives Verified 03/26/21 18:24 Home Meds: Home Meds Albuterol [Proventil HFA] PRN 03/22/21 [History] Ferrous Sulfate 325 mg PO BIDMEALS #60 tablet 03/25/21 [Rx] Ibuprofen [Motrin] 800 mg PO Q6H PRN #30 tablet 03/25/21 [Rx] oxyCODONE 5 mg PO Q12H PRN #14 tablet 03/25/21 [Rx] Past Medical History Cardiovascular History: Reports: Other (See Below) Other Cardiovascular History: history of gest HTN during first only Respiratory History: Reports: None Gastrointestinal History: Reports: GERD 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 ED EXAM, GENERAL - Physical Exam Exam: See Below (see dictation) Course - Vital Signs Last Recorded V/S: Last Vital Signs Temp 96.5 F L 03/26/21 17:38 Pulse 97 03/26/21 20:28 Resp 18 03/26/21 20:28 BP 143/87 H 03/26/21 20:28 Pulse Ox 96 03/26/21 20:28 - Orders/Labs/Meds Meds: Medications Discontinued Medications Generic Name Dose Route Start Last Admin Trade Name Freq PRN Reason Stop Dose Admin Diphenhydramine HCl 25 mg 03/26/21 17:50 03/26/21 18:39 Diphenhydramine 50 Mg/Ml Sdv IVPUSH 03/26/21 17:51 Not Given ONETIME ONE Sodium Chloride 1,000 mls @ 999 mls/hr 03/26/21 17:50 03/26/21 18:40 Normal Saline IV 03/26/21 18:50 Not Given STAT ONE Ketorolac Tromethamine 30 mg 03/26/21 17:50 03/26/21 18:40 Ketorolac 30 Mg/Ml Sdv IVPUSH 03/26/21 17:51 Not Given ONETIME ONE Metoclopramide HCl 10 mg 03/26/21 17:50 03/26/21 18:40 Metoclopramide 10 Mg/2 Ml Sdv IV 03/26/21 17:51 Not Given ONETIME ONE Ondansetron HCl 4 mg 03/26/21 17:50 03/26/21 18:40 Ondansetron 4 Mg/2 Ml Sdv IVPUSH 03/26/21 17:51 Not Given ONETIME ONE Departure - Departure Time of Disposition: 19:57 Disposition: Home, Self-Care 01 Clinical Impression: Spinal headache - Discharge Information Instructions: Spinal Headache, Epidural Blood Patch for Spinal Headache, Care After, Epidural Blood Patch for Spinal Headache Referrals: [facility] [Primary Care Provider] - Forms: ED Department Discharge Additional Instructions: The following information is given to patients seen in the emergency department who are being discharged to home. This information is to outline your options for follow-up care. We provide all patients seen in our emergency department with a follow-up referral. The need for follow-up, as well as the timing and circumstances, are variable depending upon the specifics of your emergency department visit. If you don't have a primary care physician on staff, we will provide you with a referral. We always advise you to contact your personal physician following an emergency department visit to inform them of the circumstance of the visit and for follow-up with them and/or the need for any referrals to a consulting specialist. The emergency department will also refer you to a specialist when appropriate. This referral assures that you have the opportunity for follow-up care with a specialist. All of these measure are taken in an effort to provide you with optimal care, which includes your follow-up. Under all circumstances we always encourage you to contact your private physician who remains a resource for coordinating your care. When calling for follow-up care, please make the office aware that this follow-up is from your recent emergency room visit. If for any reason you are refused follow-up, please contact the [facility] Emergency Department at and asked to speak to the emergency department charge nurse. [facility] [address] [place] [address] [facility] [address] [place] [address] [facility] [address] [place] [address] 1. Follow-up with your primary care provider/womens health provider as discussed. Return to the ED as needed and as discussed. 2. Take precautions as discussed to you by the anesthesiologist. Sepsis Event Note (ED) - Evaluation Sepsis Screening Result: No Definite Risk
== END 2021-03-26 21:20 | disposition home or self-care (01) ==
LOC: MW.ED 17:28
DX: R51.9 Headache, unspecified (principal); G97.1 Other reaction to spinal and lumbar puncture; I10 Essential (primary) hypertension; Z91.018 Allergy to other foods
CPT/HCPCS: 62270; 99283

== ENCOUNTER 2022-10-16 13:10 | Emergency (ER) | payer MEDICAID ==
[2022-10-16 15:07] LABS: ACETAMINOPHEN <2.0 ug/mL; BLOOD UREA NITROGEN,BUN 12 mg/dL (7.0-18.0); CARBON DIOXIDE,CO2 25.8 mmol/L (21.0-32.0); CHLORIDE,CL 105 mmol/L (98-107); GLUCOSE RANDOM 113 mg/dL (74-106); POTASSIUM,K 3.6 mmol/L (3.5-5.1); SODIUM,NA 141 mmol/L (136-145)
[2022-10-16] MEDS ORDERED: Nicotine 21 MG/24 Hr Patch TRDERM ONE (15:12)
[2022-10-16 15:16] LABS: ESTIMATED GFR 105 mL/min (>60)
[2022-10-16] MEDS ORDERED: Ondansetron 4 MG Tab.DIS PO ONE (16:24)
[2022-10-16] MEDS ORDERED: buPROPion 150 MG Tab.ER PO ONE (16:25)
[2022-10-16] MEDS ORDERED: Propranolol 20 MG Tab PO ONE (16:26)
[2022-10-16] MEDS ORDERED: Acetaminophen 500 MG Tab PO STA (17:18)
== END 2022-10-16 17:50 ==
LOC: MW.ED 13:10
DX: R45.851 Suicidal ideations (principal); Z72.0 Tobacco use; Z91.018 Allergy to other foods; Z20.822 Contact with and (suspected) exposure to COVID-19
CPT/HCPCS: 36415; 80053; 80143; 80179; 80305; 80307; 81001; 81025; 83735; 84443; 85025; 87635; 93005; 99285; A9270; U0002